=== PATIENT | male | born 1930 | race Caucasian/White ===

== ENCOUNTER → 2017-10-23 | Outpatient (CLI) | payer OTHER ==
[~2017-10-23] MED LIST: ADV250 IH; TAMS-1 PO; TIOT18CA3 IH
== END ==
LOC: RAH 12:05
PROVIDERS: ATTEND Internal Medicine
DX: J44.1 Chronic obstructive pulmonary disease with (acute) exacerbation (principal); Z95.0 Presence of cardiac pacemaker
CPT/HCPCS: 71046

== ENCOUNTER → 2017-11-02 | Outpatient (CLI) | payer OTHER, SELFPAY | END | disposition home or self-care (01) | LOC: RAH 13:21 | PROVIDERS: ATTEND Internal Medicine Cardiovascular Disease | DX: J44.9 Chronic obstructive pulmonary disease, unspecified (principal); R79.1 Abnormal coagulation profile; Z95.0 Presence of cardiac pacemaker | CPT/HCPCS: 71046; 78579; 78580; A9540; A9558 ==

== ENCOUNTER → 2017-11-05 | Outpatient (CLI) | payer SELFPAY | END | disposition home or self-care (01) | LOC: OIH 14:00 | PROVIDERS: ATTEND Internal Medicine Cardiovascular Disease | DX: Z13.6 Encounter for screening for cardiovascular disorders (principal) | CPT/HCPCS: 75571 ==

== ENCOUNTER → 2017-11-05 | Outpatient (CLI) | payer OTHER | END | disposition home or self-care (01) | LOC: SHCH 16:18 | PROVIDERS: ATTEND Internal Medicine Cardiovascular Disease | DX: I25.10 Atherosclerotic heart disease of native coronary artery without angina pectoris (principal) | CPT/HCPCS: 93306 ==

== ENCOUNTER → 2017-12-13 | Outpatient (CLI) | payer OTHER ==
[~2017-12-13] MED LIST changes: +REGADENOSON 0.4 MG/5 ML PF SYG IVP SCH
== END | disposition home or self-care (01) ==
LOC: SHCH 09:24
PROVIDERS: ATTEND Internal Medicine Cardiovascular Disease
DX: I35.0 Nonrheumatic aortic (valve) stenosis (principal)
CPT/HCPCS: 78452; 93017; 96374; A9500 ×2; J2785

== ENCOUNTER → 2019-09-19 | Outpatient (CLI) | payer MEDICARE ==
[~2019-09-19] MED LIST changes: -REGADENOSON 0.4 MG/5 ML PF SYG IVP SCH
== END | disposition home or self-care (01) ==
LOC: RAH 13:43
PROVIDERS: ATTEND Internal Medicine
DX: E04.2 Nontoxic multinodular goiter (principal)
CPT/HCPCS: 76536

== ENCOUNTER 2019-11-20 09:57 | Observation (INO) | payer MEDICARE ==
[~2019-11-20] VITALS: Ht 180.3 cm; Wt 81.5 kg
[2019-11-20] VITALS (9 sets, daily range): BP systolic 106–145; BP diastolic 60–80
[~2019-11-20 09:57] MED LIST changes: -ADV250 IH; +AEC81 PO; +AUD IH; +CARV3.12 PO; +FLUT1BLS3 IH; +FURO20TA4 PO; +PRED20TA3 PO; +SACU1TAB PO; +SIMV-46 PO; -TIOT18CA3 IH
[2019-11-20 10:29] LABS: BASOPHILS % (AUTO) 0.2 % (0.0-5.0); EOSINOPHILS % (AUTO) 1.3 % (0.0-8.0); HEMATOCRIT 43.9 % (42-54); MEAN CORPUSCULAR HEMOGLOBIN 27.8 pg (27.0-33.0); MEAN CORPUSCULAR HGB CONC 32.3 g/dL (32.0-36.0); MEAN CORPUSCULAR VOLUME 85.9 fL (79-99); MONOCYTES % (AUTO) 7.2 % (3.0-13.0); NEUTROPHILS % (AUTO) 85.1 % (40.0-77.0); PLATELET COUNT (AUTO) 119 K/uL (130-400); RED BLOOD CELL COUNT(AUTO) 5.11 MIL/uL (4.50-6.20); RED CELL DISTRIBUTION WIDTH 17.2 % (11.0-15.5); WHITE BLOOD COUNT (AUTO) 8.4 K/uL (4.8-10.8)
[2019-11-20 10:36] LABS: CREATININE 1.1 mg/dL (0.5-1.5); POTASSIUM 4.7 mmol/L (3.5-5.1)
[2019-11-20 10:39] LABS: INR 0.93 (0.85-1.15); PARTIAL THROMBOPLASTIN TIME 27.6 SEC (26.3-35.5); PROTHROMBIN TIME 10.1 SEC (9.6-11.6)
[2019-11-20] MEDS ORDERED: PRED10TA3 PO (11:01)
[2019-11-20] MEDS ORDERED: SODIUM CHLORIDE 0.9% 1000ML 1,000 ML IV ONE (11:07)
[2019-11-20] MEDS ORDERED: BUPIVACAINE/PF 0.25% 30ML VIAL IJ ONE (12:54)
[2019-11-20] MEDS ORDERED: CEFAZOLIN SODIUM 1 GM VIAL ONE (12:54)
[2019-11-20] MEDS ORDERED: MIDAZOLAM HCL 1 MG/ML 2ML VIAL ONE ×3 (12:55→14:17)
[2019-11-20] MEDS ORDERED: MEPERIDINE-PF 25 MG/ML SYG ONE ×3 (12:55→14:18)
[2019-11-20] MEDS ORDERED: IODIXANOL 320 MG/ML 100 ML VIAL ONE (12:55)
[2019-11-20] MEDS ORDERED: LIDOCAINE HCL 1% MDV 50ML VIAL ONE (12:55)
[2019-11-20] MEDS ORDERED: ACETAMINOPHEN-CODEINE 300/30MG TAB PO PRN (15:00)
[2019-11-20] MEDS: CARVEDILOL 3.125 MG TABLET PO SCH (20:34)
[2019-11-20] MEDS: SACUBITRIL PO SCH (20:34)
[2019-11-20] MEDS: VALSARTAN PO SCH (20:34)
[2019-11-20] MEDS ORDERED: ASPIRIN 81 MG EC TAB PO SCH (21:00)
[2019-11-20] MEDS ORDERED: TAMSULOSIN HCL 0.4 MG CAP.ER.24H PO SCH (21:00)
[2019-11-20] MEDS ORDERED: SIMVASTATIN 20 MG TABLET PO SCH (21:00)
[2019-11-20] MEDS: ALBUTEROL SULFATE 0.083% 2.5 MG/3 ML INH IH SCH (21:31)
[2019-11-20] MEDS ORDERED: SIMETHICONE 80 MG TAB.CHEW PO PRN (23:15)
[2019-11-21 00:24] VITALS: BP 96/53
[2019-11-21 04:20] VITALS: BP 99/58
[2019-11-21] MEDS: ALBUTEROL SULFATE 0.083% 2.5 MG/3 ML INH IH SCH (06:26)
[2019-11-21] MEDS: CARVEDILOL 3.125 MG TABLET PO SCH ×2 (08:11→08:32)
[2019-11-21] MEDS ORDERED: ONDANSETRON HCL 4 MG/2 ML VIAL IVP PRN (08:15)
[2019-11-21] MEDS: SACUBITRIL PO SCH (08:23)
[2019-11-21] MEDS: VALSARTAN PO SCH (08:23)
[2019-11-21 08:43] VITALS: BP 110/65
[2019-11-21] MEDS ORDERED: **HM**(Fluticasone/Umeclidin/Vilanter (Trelegy Ellipta 100-62.5- IH SCH (09:00)
[2019-11-21] MEDS ORDERED: PREDNISONE 10 MG TABLET PO SCH (09:00)
[2019-11-21] MEDS ORDERED: FUROSEMIDE 20 MG TABLET PO SCH (09:00)
--- NOTE | 2019-11-21 10:46 | NUR ---
GREGORY SADDLE MECHANIC ROUNDED TO SEE PATIENT. EDUCATED ON BIV AICD, DISCHARGE INSTRUCTIONS SUCH SHOWERING AND DRESSING CHANGES AND SLING USE. AND PT VERBALIZED UNDERSTANDING WITH PRIMARY NURSE AT BEDSIDE.
--- NOTE | 2019-11-21 11:10 | NUR ---
DR CRUZ MADE AWARE OF CLEARED FOR DISCHARGE BY CARDIOLOGY
[2019-11-21 11:32] VITALS: BP 99/59
== END 2019-11-21 12:42 | disposition home or self-care (01) ==
LOC: DAH 09:57 → DAHIP 09:58 → DAH 10:05 → 4DH 15:45
PROVIDERS: ADMIT Internal Medicine; ATTEND Internal Medicine
DX: I50.22 Chronic systolic (congestive) heart failure (principal); J44.9 Chronic obstructive pulmonary disease, unspecified; I44.2 Atrioventricular block, complete; I35.0 Nonrheumatic aortic (valve) stenosis; R47.02 Dysphasia; Z87.891 Personal history of nicotine dependence
CPT/HCPCS: 33225; 33233; 33249; 36415; 71045; 80048; 85025; 85610; 85730; 94640 ×2; 94664; 96374; A4215; A4216; A4221; A4222; A4223 ×3; A4606; A4663; C1769; C1882; C1895; C1900; G0378 ×16; J0690; J2175 ×3; J2250 ×3; J2405; J3490 ×2; J7030; J7512; Q9967; 99152; 99153; 99156; 99157